=== PATIENT | male | born 1955 | race Caucasian/White ===

== ENCOUNTER → 2019-04-13 | Outpatient (CLI) | payer MEDICARE, OTHER ==
[~2019-04-13] VITALS: Ht 180.3 cm; Wt 105.2 kg
[~2019-04-13] MED LIST: CATHETER FLUSH 10 ML SYR IV PRN; REGADENOSON 0.4 MG/5 ML SYR (LEXISCAN) IV ONE
[2019-04-13 09:00] VITALS: BP 116/63
[2019-04-13 09:01] VITALS: BP 138/75
--- NOTE | 2019-04-15 13:51 | Cardiology Stress Test Report ---
Stress Test Report Type of NM Stress Test: Test Type: LEXISCAN 0.4MG/5ML Date of Procedure/Referring: Date of Procedure: Apr 13, 2019 PCP Christiana Griffin MD Admitting Physician Clarisa Combs MD Indications: Chest pain Baseline Heart Rate: 58 Baseline Blood Pressure: Blood Pressure Systolic: 138 Blood Pressure Diastolic: 75 Baseline EKG: Baseline EKG: sinus rhythm Summary & Conclusion: Summary: The patient was brought to the stress lab after informed consent was taken. St ress test was performed according to the Lexiscan protocol. 0.4 mg of IV Lexiscan was given. Low-grade exercise was performed. Baseline EKG showed sinus rhythm at 58 BPM. Initial blood pressure was 116/63 mmHg. Maximum heart rate was 80 bpm and blood pressure 132/75 mmHg. Patient did not have any chest pain, arrhythmias or ST segment changes during the stress test. 10.11 mCi of Myoview were given for rest imaging and 32.9 mCi of Myoview given for stress imaging. Transient ischemic dilatation score 0.96, EF 40 percent. Normal wall motion. Small inferior fixed defect. Small area of distal anterior apical reversible defect. Conclusion: Pharmacological stress test was negative for ischemia. Decreased LV systolic function. 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 Evidence of distal anterior apical ischemia. Coronary angiography is recommended. Christiana GRIFFIN MD Apr 15, 2019 13:51
== END ==
LOC: CARD 07:50
PROVIDERS: ATTEND Internal Medicine Interventional Cardiology
DX: I51.7 Cardiomegaly (principal); E11.9 Type 2 diabetes mellitus without complications; E78.5 Hyperlipidemia, unspecified; I10 Essential (primary) hypertension
CPT/HCPCS: 78452; 93017; 93306

== ENCOUNTER 2019-04-20 13:23 | Day surgery (SDC) | payer MEDICARE, OTHER ==
[~2019-04-20] VITALS: Ht 180.3 cm; Wt 104.3 kg
[2019-04-20] VITALS (13 sets, daily range): BP systolic 125–190; BP diastolic 75–112
[2019-04-20] MEDS ORDERED: NS IV 1000 ML 1,000 ML IV SCH ×2 (13:31→17:14)
[2019-04-20] MEDS ORDERED: LIDOCAINE 1% INJ 20 ML 20 ML VIAL ONE (13:33)
[2019-04-20] MEDS ORDERED: NS IV 1000 ML 1,000 ML ONE ×2 (13:33→15:50)
[2019-04-20 14:02] LABS: HEMOGLOBIN 14.6 G/DL (13.3-17.7); MEAN PLATELET VOLUME 11.1 FL (7.4-10.4); RED CELL DISTRIBUTION WIDTH 14.2 % (10.0-14.5); WHITE BLOOD COUNT 7.5 10^3/uL (4.3-11.0)
[2019-04-20 14:14] LABS: PROTHROMBIN TIME PATIENT 13.4 SEC (12.2-14.7)
[2019-04-20 14:21] LABS: ALANINE AMINOTRANSFERASE 32 U/L (0-55); ALBUMIN 4.7 GM/DL (3.2-4.5); ALKALINE PHOSPHATASE 52 U/L (40-136); BILIRUBIN,TOTAL 0.8 MG/DL (0.1-1.0); BUN/CREATININE RATIO 23; CALCIUM 9.6 MG/DL (8.5-10.1); CARBON DIOXIDE 26 MMOL/L (21-32); CHLORIDE 106 MMOL/L (98-107); CREATININE SERUM 1.28 MG/DL (0.60-1.30); GFR ESTIMATED 56; GLUCOSE 98 MG/DL (70-105); POTASSIUM 4.1 MMOL/L (3.6-5.0); SODIUM 141 MMOL/L (135-145); TOTAL PROTEIN 7.6 GM/DL (6.4-8.2)
[2019-04-20] MEDS ORDERED: HEParin 1000 UNIT/ML (10ML VIAL) FOR BOLUS ONE (15:12)
[2019-04-20] MEDS ORDERED: VERAPAMIL 5 MG/2 ML (CALAN) VIAL IV ONE (15:12)
[2019-04-20] MEDS ORDERED: MIDAZOLAM 5 MG/5 ML (VERSED) VIAL ONE (15:12)
[2019-04-20] MEDS ORDERED: NITRO DRIP 25000 MCG/D5W 250 ML IV ONE (15:12)
[2019-04-20] MEDS ORDERED: fentaNYL INJECTION 100 MCG/2 ML AMP ONE (15:12)
[2019-04-20] MEDS ORDERED: ATOR40TA70 PO (15:45)
[2019-04-20] MEDS ORDERED: HYDR25TA4 PO (15:45)
[2019-04-20] MEDS ORDERED: OMG1KC PO (15:45)
[2019-04-20] MEDS ORDERED: FLAX100031 PO (15:45)
--- NOTE | 2019-04-20 17:04 | Cardiac Procedure Note-CS/ASA ---
Pre-Procedure Note Pre-Op Procedure Note H&P Reviewed The H&P was reviewed, patient examined and no changes noted. Date H&P Reviewed: Apr 20, 2019 Time H&P Reviewed: 15:00 Conscious Sedation Pre-Proced Time 15:00 ASA Score 3 For ASA 3 and 4: Consider anesthesia and medical clearance. Also, for patients with a history of failed moderate sedation consider anesthesia. Airway Lungs Heart ASA score ASA 1: a normal healthy patient ASA 2: a patient with a mild systemic disease (mid diabetes, controlled hypertension, obesity ASA 3: a patient with a severe systemic disease that limits activity (angina, COPD, prior Myocardial infarction) ASA 4: a patient with an incapacitating disease that is a constant threat to life (CHF, renal failure) ASA 5: a moribund patient not expected to survive 24 hrs. (ruptured aneurysm) ASA 6: a declared brain- patient whose organs are being harvested. For emergent operations, add the letter E after the classification Mallampati Classification Grade 1 Sedation Plan Analgesia, Amnesia, Plan communicated to team members, Discussed options with patient/fam, Discussed risks with patient/fam The patient is an appropriate candidate to undergo the planned procedure, sedation, and anesthesia. The patient immediately re-assessed prior to indication. Christiana MCDANIEL MD Apr 20, 2019 17:04
--- NOTE | 2019-04-20 17:14 | Coronary Angiography Report ---
Coronary Angiography Report DATE OF PROCEDURE: 04/20/19 INDICATION: chest pressure, abnormal nuclear stress test. PREOPERATIVE DIAGNOSIS: chest pressure, abnormal nuclear stress test. POSTOPERATIVE DIAGNOSIS: severe left main, LAD and RCA disease. HISTORY: this is a 64-year-old gentleman with risk factors for CAD. He presented with chest pressure. Nuclear stress test showed distal anterior apical ischemia. Therefore, the patient was scheduled for coronary angiography. PROCEDURES PERFORMED: 1.Coronary angiography. 2.Left heart catheterization. 3. Aortic root injection. 4. Aortic arch angiogram. 5. IVUS of the left main and LAD. COMPLICATIONS: None. SPECIMENS: None. ESTIMATED BLOOD LOSS: 10 mL ANESTHESIA: Conscious sedation ANTICOAGULATION: IV heparin CONTRAST: 140 mL. FLUOROSCOPY: 10.5 minutes. FLOUROSCOPY DOSE: 1274 mgy. PROCEDURE DETAILS: The patient is a 64 male and was brought to the gold leaf laborer after informed consent was taken. All the risks and complications were explained in detail; this included the risk of bleeding, vascular damage, stroke, CO and even . The patient was draped and prepped in the usual sterile fashion. Access was gained in the right radial artery with a 6 [place] sheath. Coronary angiography and left heart catheterization was performed with the Bryant catheter. FINDINGS: 1.Left main: severe ostial disease. Stenosis severity 60-70 percent. Dampening and significant ventricularization noted with a diagnostic catheter. 2.LAD: severe mid LAD disease. Diffuse disease and small caliber vessel distally. 3.Left circumflex artery: kshz-iq-beolyyek disease in the proximal first OM. 4.RCA: severe mid stenosis. Stenosis severity 80 percent. Moderate to severe distal disease with stenosis severity of 70 percent. 5.Left heart catheterization: LV pressure 98/1 mmHg. LVEDP 6 mmHg. Aortic pressure 87/52 mmHg. Normal LV function with no wall motion abnormalities. No gradient across the aortic valve. 6. Aortic root injection: Severe ostial left main disease. No significant aortic regurgitation. 7. Aortic arch angiogram: no evidence of aortic aneurysm or dissection. Patent proximal segments of the great arteries. Recommendation: IVUS examination of the LAD and left main is recommended. IVUS details: JL4 guide catheter, IV heparin for anticoagulation and BMW guidewire. The lesion in the mid LAD was crossed with the BMW wire. The tip of the wire was placed in the distal LAD. We then went in with an IVUS catheter and numerous runs were done. MLA for mid LAD was 3.5 cm. MLA of ostial left main was 5.5 cm. The wire was taken out and post-angiogram did not show any vascular complication. Significant dampening and ventricularization was also noted with the guide catheter as well. CONCLUSIONS: severe ostial left main, mid LAD and RCA stenosis. Cardiac surgery consultation is recommended. Ilir Griffin MD, FACP, FACC, [facility] Interventional Cardiology Christiana GRIFFIN MD Apr 20, 2019 17:14
[2019-04-20] MEDS ORDERED: PATIENT MAY USE OWN MEDS, ALL PO SCH (17:15)
--- NOTE | 2019-04-20 17:35 | Discharge Inst-Post CATH ---
Discharge Inst-CATH/EP Problems Reviewed?: Yes Post Cardiac Cath/EP D/C Inst Follow Up/Plan Transfer to [facility] for Cardiac surgery/high risk PCI consultation with Dr Saunders and Dr Knowles. Follow with me afterwards. <b>CARDIAC CATH/EP PROCEDURE DISCHARGE INSTRUCTIONS</b> ACTIVITY * Go Home directly and rest. * Limit activity of the leg (or wrist if it was used) for 7 days including aerobics, swimming, jogging, bicycling, etc. * Restrict stair-climbing for 7 days if possible, if not, climb up with your non-cath leg, then bring together on the same step. * Avoid lifting, pushing, pulling or excessive movement of the affected extremity for 7 days. * Customary sexual activity may be resumed after 2 days-use caution not to use a position that strains or causes pain to the affected extremity. * No driving for 24 hours. * NO SMOKING. * Avoid straining for bowel movements for 7 days. * Gentle walking on level ground is allowed. * Returning to work will depend on the type of procedure and the results. Your doctor will discuss this with you. CALL YOUR DOCTOR FOR ANY OF THE FOLLOWING: *If bleeding from the puncture site occurs- Apply gentle pressure to site with clean cloth and call your doctor or EMS. * If a knot or lump forms under the skin, increases in size, or causes pain. * If bruising appears to be worsening or moving further down your leg instead of disappearing. * Temperature above 101 F. CARE OF YOUR GROIN INCISION; * Bruising or purple discoloration of the skin near the puncture site is common. * You may shower only, no bathtub bathing for 5 days. Be careful to avoid slipping as your leg may feel stiff. * If a closure device was used on your femoral artery, please see the attached guide regarding care of the device and your leg. * Leave dressing on FOR 24 hours. CARE OF YOUR WRIST INCISION; * Bruising or purple discoloration of the skin near the puncture site is common. * You may shower. * DO NOT submerge wrist. * Leave dressing on FOR 24 hours. Christiana MCDANIEL MD Apr 20, 2019 17:34
--- NOTE | 2019-04-20 17:38 | Cardiology Discharge Summary ---
Diagnosis/Chief Complaint Date of Admission 04/20/2019 Date of Discharge 04/20/2019 Admission Diagnosis chest pressure, abnormal nuclear stress test. Final/Discharge Diagnosis severe left main, LAD and RCA disease. Chief Complaint/HPI Chief Complaint/HPI this is a 64-year-old gentleman with risk factors for CAD. He presented with episodes of chest pressure. Nuclear stress test was done which showed evidence of distal anterior apical ischemia. Coronary angiography was recommended. Discharge Summary Procedures coronary angiography shows severe ostial left main disease, severe mid LAD stenosis. Severe mid RCA stenosis. Normal LV function. Discharge Physical Examination unremarkable. Hospital Course Was the Problem List Reviewed?: Yes stable. Pending Labs Laboratory Tests 04/20/19 13:55: White Blood Count 7.5, Red Blood Count 5.04, Hemoglobin 14.6, Hematocrit 43, Mean Corpuscular Volume 85, Mean Corpuscular Hemoglobin 29, Mean Corpuscular Hemoglobin Concent 34, Red Cell Distribution Width 14.2, Platelet Count 195, Mean Platelet Volume 11.1, Prothrombin Time 13.4, INR Comment 1.0, Activated Partial Thromboplast Time 36, Sodium Level 141, Potassium Level 4.1, Chloride Level 106, Carbon Dioxide Level 26, Anion Gap 9, Blood Urea Nitrogen 30, Creatinine 1.28, Estimat Glomerular Filtration Rate 56, BUN/Creatinine Ratio 23, Glucose Level 98, Calcium Level 9.6, Corrected Calcium , Total Bilirubin 0.8, Aspartate Amino Transf (AST/SGOT) 18, Alanine Aminotransferase (ALT/SGPT) 32, Alkaline Phosphatase 52, Total Protein 7.6, Albumin 4.7 Discussion & Recommendations Discussion discussed at length with the patient. Patient will be transferred to [facility] for cardiac surgery/high risk PCI consultation with Dr. Saunders and Dr Knowles. I spoke with Dr. Saunders at 5:30 p.m. today who very kindly accepted the patient. The patient will be transferred this evening. Follow up appt.: Dr Gaby Reina Diet: Cardiac Diet Activity as Tolerated: Yes Home Medications Reviewed patient Home Medication Reconciliation performed by pharmacy medication reconciliations wireless cellular technician and/or nursing. Patients Allergies have been reviewed. Discharge Home Medications: Reviewed and agree with Discharge Medication list on patient's Discharge Instruction sheet Condition at discharge Stable Instructions to patient/family Transfer to [facility] for Cardiac surgery/high risk PCI consultation with Dr Saunders and Dr Knowles. Follow with me afterwards. Christiana MCDANIEL MD Apr 20, 2019 17:38
--- NOTE | 2019-04-20 19:55 | NUR ---
CALLED DR. MCDANIEL AND INFORMED HIM THAT PATIENT REQUESTED THAT I CALL AND INQUIRE WHETHER OR NOT HE COULD BE DISCHARGED TO HOME AND THEN TRANSPORT HIMSELF OVER TO [facility] IN THE MORNING. DR. MCDANILE INFORMED THIS NURSE THAT THE PATIENT COULD SIGN AMA PAPERS IF HE WISHED TO DRIVE HIMSELF TO [facility]. COMMUNICATED THIS TO PATIENT AND AGAIN EXPLAINED THE RISK OF NOT BE TRANSPORTED VIA AMBULANCE TO [facility]. PATIENT THEN DECIDED TO FOLLOW DR. MCDANIEL'S MEDICAL ADVICE AND BE TRANSFERRED BY EMS.
[2019-04-21] MEDS ORDERED: ASPIRIN E.C. 81 MG (ECOTRIN) TAB PO SCH (09:00)
== END 2019-04-20 22:30 | disposition short-term general hospital (02) ==
LOC: CATH 13:23 → ICU 17:26 → CATH 22:30
PROVIDERS: ATTEND Internal Medicine Interventional Cardiology
DX: I25.10 Atherosclerotic heart disease of native coronary artery without angina pectoris (principal); E11.9 Type 2 diabetes mellitus without complications; E78.5 Hyperlipidemia, unspecified; I10 Essential (primary) hypertension; Z82.49 Family history of ischemic heart disease and other diseases of the circulatory system; Z79.899 Other long term (current) drug therapy
CPT/HCPCS: 36221; 36415; 80053; 85027; 85347; 85610; 85730; 87081; 93458; 93567

== ENCOUNTER 2019-08-31 | Outpatient (RCR) | payer MEDICARE, OTHER ==
[~2019-08-31] MED LIST changes: +ATOR40TA70 PO; -CATHETER FLUSH 10 ML SYR IV PRN; +FLAX100031 PO; +HYDR25TA4 PO; +OMG1KC PO; -REGADENOSON 0.4 MG/5 ML SYR (LEXISCAN) IV ONE
== END 2019-11-14 | disposition home or self-care (01) ==
LOC: CARD
PROVIDERS: ATTEND Internal Medicine Interventional Cardiology
DX: R00.2 Palpitations (principal)

== ENCOUNTER 2020-12-18 05:30 | Outpatient (RCR) | payer MEDICARE, OTHER ==
[~2020-12-18] VITALS: Ht 178 cm; Wt 106.7 kg
[~2020-12-18 05:30] MED LIST changes: +ASPI-1238 PO; +CLOP75TA28 PO; +LISI20TA26 PO
== END 2020-12-18 08:47 | disposition home or self-care (01) ==
LOC: PREOP 05:30
PROVIDERS: ATTEND Surgery
DX: Z01.812 Encounter for preprocedural laboratory examination (principal); K92.1 Melena; K21.9 Gastro-esophageal reflux disease without esophagitis; Z20.822 Contact with and (suspected) exposure to COVID-19
CPT/HCPCS: 87635

== ENCOUNTER 2020-12-20 11:28 | Day surgery (SDC) | payer MEDICARE, OTHER ==
[~2020-12-20] VITALS: Ht 178 cm; Wt 10607.0 kg
[~2020-12-20 11:28] MED LIST changes: +LACTATED RINGERS 1,000 ML IV ONE
[2020-12-20] MEDS ORDERED: LACTATED RINGERS 1,000 ML IV STA (11:37)
[2020-12-20] MEDS ORDERED: MIDAZOLAM 2 MG/2 ML (VERSED) VIAL ONE ×2 (11:39→12:21)
[2020-12-20] MEDS ORDERED: PROPOFOL INJECTION 50 ML IV ONE ×2 (11:39→12:30)
[2020-12-20 11:40] VITALS: BP 164/96
[2020-12-20] MEDS ORDERED: HURRICAINE EXT TUBE (BENZOCAINE) XX PRN (11:45)
[2020-12-20] MEDS ORDERED: LIDOCAINE JELLY 2% 6 ML SYRINGE MM PRN (11:45)
[2020-12-20] MEDS ORDERED: LIDOCAINE JELLY 2% 6 ML SYRINGE ONE (11:46)
[2020-12-20] MEDS ORDERED: HURRICAINE EXT TUBE (BENZOCAINE) ONE (11:47)
[2020-12-20 12:55] VITALS: BP 120/63
--- NOTE | 2020-12-20 12:56 | Anesthesia-General Post-Op ---
MAC Patient Condition Mental Status/LOC: Same as Preop Cardiovascular: Satisfactory Nausea/Vomiting: Absent Respiratory: Satisfactory Pain: Controlled Complications: Absent Post Op Complications Complications None Follow Up Care/Instructions Patient Instructions None needed. Anesthesiology Discharge Order Discharge Order Patient is doing well, no complaints, stable vital signs, no apparent adverse anesthesia problems. No complications reported per nursing. JINA MCCLAIN CRNA Dec 20, 2020 12:56
[2020-12-20 13:00] VITALS: BP 128/70
[2020-12-20 13:05] VITALS: BP 111/56
[2020-12-20] MEDS ORDERED: FAMO20TA3 PO ×2 (13:18→13:20)
[2020-12-20 13:30] VITALS: BP 187/100
[2020-12-20 13:40] VITALS: BP 187/100
--- NOTE | 2020-12-20 19:33 | OPERATIVE REPORT ---
DATE OF SERVICE: 12/20/2020 ATTENDING PRIMARY CARE PHYSICIAN: Dr. Clarisa Combs. PREOPERATIVE DIAGNOSES: Dark tarry stools, gastroesophageal reflux disease. POSTOPERATIVE DIAGNOSES: Reflux esophagitis stage II, small hiatal hernia approximately 2 cm in size, moderate gastritis with superficial erosions. No formal ulcerations or any active bleeding. Mild chronic stage II external and internal hemorrhoids. PROCEDURE: EGD with biopsy, colonoscopy. SURGEON: Jean Pierre Yuan MD. ANESTHESIA: Monitored anesthesia care. ESTIMATED BLOOD LOSS: Minimal. FINDINGS: Reflux esophagitis stage II, small hiatal hernia approximately 2 cm in size, moderate gastritis with superficial erosions. No formal ulcerations or any active bleeding. Mild chronic stage II external and internal hemorrhoids. DISPOSITION: The patient tolerated the procedure well. INDICATIONS: The patient is a 65-year-old male referred over to us for dark tarry stools. He reports that this occurred approximately one month ago and lasted for 3 to 4 days. He underwent a Hemoccult test, which was positive. He also did report feeling slightly lightheaded at that time. He did not report any nausea, no vomiting as well as no hematemesis, no coffee ground emesis. He is on anticoagulation for coronary artery disease with Plavix. He also did have a colonoscopy in 2016, which he believes to be normal. He does not report any family history of colon cancer. DESCRIPTION OF PROCEDURE: The patient was brought to the endoscopy suite, laid in the left lateral decubitus position. After adequate IV pain and sedative medications and monitored anesthesia care, the mouthpiece was applied. The endoscope was placed in the mouth, visualizing the pharynx and hypopharyngeal region. Vocal cords, epiglottis and vallecula identified and appeared to be normal. Endoscope was then gently intubated. Esophageal opening and esophagus insufflated. The endoscope was then advanced to the first, second and third portion of esophagus at the level of the GE junction, a reflux esophagitis stage II identified. There were no ulcers or strictures identified in this region. A biopsy was taken with forceps with visualization of good hemostasis. The endoscope was then advanced in the stomach and endoscope retroflexed, visualizing a small hiatal hernia approximately 2 cm in size. There was a moderate severity gastritis with small areas of focal antral erosions; however, there was no active bleeding identified. This was the most likely source of the dark tarry stools. Biopsy was taken of the stomach antrum to rule out H. pylori with visualization of good hemostasis. The endoscope was then advanced to the pylorus and first and second portion of the duodenum, which appeared normal with no ulcerations or bleeding identified. The endoscope was then slowly withdrawn while taking a second look and suctioning of residual air with no additional findings. We then proceeded with the colonoscopy portion of the procedure and a digital rectal examination was performed, which revealed chronic stage II external and internal hemorrhoids, not actively edematous nor inflamed and no bleeding. Normal sphincter tone was felt and there were no palpable masses. Prostate gland was palpable and appeared normal. The endoscope was then intubated to the anus and rectum gently insufflated. The endoscope was then advanced to the valves of Robin of the rectum with no polyps or any neoplasms identified. The endoscope was then advanced through the sigmoid colon where no significant diverticulosis was identified. The endoscope was then advanced and remainder of the descending, transverse and ascending colon to the cecum. These segments were normal. There were no polyps, neoplasms or any active bleeding sources identified. The endoscope was then slowly withdrawn while taking a second look and suctioning of residual air with no additional findings. The patient tolerated the procedure well. We will recommend the necessary lifestyle and diet accommodation, which encompasses small and more frequent meals, avoiding to eating at night as well as head elevation while lying supine. He also needs to avoid caffeinated beverages, spicy, greasy and acidic foods as well as alcoholic beverages. We will also start him on Pepcid 20 mg b.i.d. We will also recommend a high fiber diet with at least 30 grams of fiber daily to promote soft stools on a daily basis as a preventative measure. Job ID: [id number] DocumentID: [id number] Dictated Date: 12/20/2020 12:56:53 Banana Loader Date: 12/20/2020 19:32:59 Dictated By: JEAN PIERRE YUAN MD
== END 2020-12-20 13:40 | disposition home or self-care (01) ==
LOC: ENDO 11:28
PROVIDERS: ATTEND Surgery
DX: K21.00 Gastro-esophageal reflux disease with esophagitis, without bleeding (principal); K29.50 Unspecified chronic gastritis without bleeding; K44.9 Diaphragmatic hernia without obstruction or gangrene; K64.1 Second degree hemorrhoids; K92.1 Melena; I10 Essential (primary) hypertension; K21.9 Gastro-esophageal reflux disease without esophagitis; E11.9 Type 2 diabetes mellitus without complications; E66.9 Obesity, unspecified; E78.00 Pure hypercholesterolemia, unspecified; I25.10 Atherosclerotic heart disease of native coronary artery without angina pectoris; Z79.899 Other long term (current) drug therapy; Z79.82 Long term (current) use of aspirin; Z83.3 Family history of diabetes mellitus
CPT/HCPCS: 88305

== ENCOUNTER → 2021-02-12 | Outpatient (CLI) | payer MEDICARE, OTHER ==
[~2021-02-12] VITALS: Ht 180 cm; Wt 104.0 kg
[~2021-02-12] MED LIST changes: +CATHETER FLUSH 10 ML SYR IV PRN; +FAMO20TA3 PO; -LACTATED RINGERS 1,000 ML IV ONE; +REGADENOSON 0.4 MG/5 ML SYR (LEXISCAN) IV ONE
[2021-02-12 13:30] VITALS: BP 142/101
--- NOTE | 2021-02-12 15:25 | Cardiology Stress Test Report ---
Stress Test Report Date of Procedure/Referring: Date of Procedure: Feb 12, 2021 PCP Evan Hoskins MD Admitting Physician Clarisa Combs MD Indications: HTN Baseline Heart Rate: 58 Baseline Blood Pressure: Blood Pressure Systolic: 142 Blood Pressure Diastolic: 101 Baseline Vitals Vital Signs Date Time Temp Pulse Resp B/P (MAP) Pulse Ox O2 Delivery O2 Flow Rate FiO2 02/12/21 13:30 58 18 142/101 (115) 97 Baseline EKG: Baseline EKG: NSR, frequent pvcs Summary After explaining the procedure to the patient, he signed a consent and then brought to the stress nuclear laboratory. Patient received 0.4 mg Lexiscan for stress test, ECG, heart rate and blood pressure were monitored continuously. Resting and stress dose of radio tracer were injected, imaging was acquired and reviewed in short axis, horizontal long axis and vertical long axis views. TID: 0.96 SSS: 6 SDS: 4 EF: 49 1. Patient tolerated Lexiscan well 2. Baseline EKG showing sinus rhythm with frequent premature ventricular contractions 3. Diaphragmatic attenuation with reversible ischemia involving the mid to apical anterior wall, mild ischemia at the apex and inferoapical segment 3. Normal left ventricular size, EF 49% EVAN HOSKINS MD Feb 12, 2021 15:25
== END ==
LOC: CARD 11:30
PROVIDERS: ATTEND Internal Medicine Cardiovascular Disease
DX: I11.9 Hypertensive heart disease without heart failure (principal); I25.10 Atherosclerotic heart disease of native coronary artery without angina pectoris
CPT/HCPCS: 78452; 93017; 93306; A9502

== ENCOUNTER 2021-02-28 09:00 | Day surgery (SDC) | payer MEDICARE, OTHER ==
[2021-02-28] VITALS (10 sets, daily range): BP systolic 121–151; BP diastolic 63–85
[~2021-02-28] VITALS: Ht 180 cm; Wt 104.0 kg
[2021-02-28 07:29] LABS: BILIRUBIN,URINE NEGATIVE (NEGATIVE); CLARITY,URINE CLEAR; COLOR,URINE YELLOW; GLUCOSE, URINE (UA) NEGATIVE (NEGATIVE); KETONES,URINE NEGATIVE (NEGATIVE); LEUKOCYTE ESTERASE ,URINE NEGATIVE (NEGATIVE); NITRITE,URINE NEGATIVE (NEGATIVE); PROTEIN,URINE NEGATIVE (NEGATIVE)
[2021-02-28 07:30] LABS: HEMATOCRIT 42 % (40-54); HEMOGLOBIN 13.3 g/dL (13.3-17.7); MEAN CORPUSCULAR HEMOGLOBIN 25 pg (25-34); MEAN CORPUSCULAR HGB CONC 32 g/dL (32-36); MEAN CORPUSCULAR VOLUME 79 fL (80-99); MEAN PLATELET VOLUME 10.3 fL (9.0-12.2); PLATELET COUNT 243 10^3/uL (130-400); WHITE BLOOD COUNT 8.1 10^3/uL (4.3-11.0)
[2021-02-28 07:45] LABS: BACTERIA,URINE NEGATIVE /HPF
--- NOTE | 2021-02-28 07:52 | Diagnostic Imaging Report ---
INDICATION: Chest pain COMPARISON: None available TECHNIQUE: Single radiograph of chest dated 02/28/2021. FINDINGS: The cardiac silhouette is mildly enlarged. Mild central pulmonary vascular congestion. Low lung volumes with mild bibasilar interstitial opacities. No large-volume pleural effusion. No pneumothorax. No acute osseous abnormality. IMPRESSION: Mild cardiomegaly and pulmonary vascular congestion. Mild bibasilar atelectasis and/or pneumonitis. No significant pleural effusion. Dictated by: Dictated on workstation # [id number]
--- NOTE | 2021-02-28 07:56 | Conscious Sedation/ASA ---
Conscious Sedation Pre-Proced Time 07:56 ASA Score 3 For ASA 3 and 4: Consider anesthesia and medical clearance. Also, for patients with a history of failed moderate sedation consider anesthesia. Airway Lungs Heart ASA score ASA 1: a normal healthy patient ASA 2: a patient with a mild systemic disease (mid diabetes, controlled hypertension, obesity x ASA 3: a patient with a severe systemic disease that limits activity (angina, COPD, prior Myocardial infarction) ASA 4: a patient with an incapacitating disease that is a constant threat to life (CHF, renal failure) ASA 5: a moribund patient not expected to survive 24 hrs. (ruptured aneurysm) ASA 6: a declared brain- patient whose organs are being harvested. For emergent operations, add the letter E after the classification Mallampati Classification Grade 3 Sedation Plan Analgesia, Amnesia, Plan communicated to team members, Discussed options with patient/fam, Discussed risks with patient/fam The patient is an appropriate candidate to undergo the planned procedure, sedation, and anesthesia. The patient immediately re-assessed prior to indication. EVAN HAWKINS MD Feb 28, 2021 07:56
[2021-02-28 07:59] LABS: INR 0.9 (0.8-1.4); PROTHROMBIN TIME PATIENT 12.9 SEC (12.2-14.7)
[2021-02-28 08:03] LABS: ALANINE AMINOTRANSFERASE 18 U/L (0-55); ALBUMIN 4.2 GM/DL (3.2-4.5); ALKALINE PHOSPHATASE 65 U/L (40-136); BILIRUBIN,TOTAL 0.4 MG/DL (0.1-1.0); BUN/CREATININE RATIO 19; CALCIUM 9.3 MG/DL (8.5-10.1); CARBON DIOXIDE 22 MMOL/L (21-32); CHLORIDE 108 MMOL/L (98-107); CHOLESTEROL 137 MG/DL (< 200); CREATININE SERUM 1.04 MG/DL (0.60-1.30); GFR ESTIMATED > 60; GLUCOSE 129 MG/DL (70-105); HDL CHOLESTEROL 35 MG/DL (40-60); SODIUM 139 MMOL/L (135-145); TOTAL PROTEIN 7.1 GM/DL (6.4-8.2); TRIGLYCERIDES 116 MG/DL (<150); VLDL CHOLESTEROL 23 MG/DL (5-40)
--- NOTE | 2021-02-28 08:48 | Discharge Inst-Post CATH ---
Discharge Inst-CATH/EP Problems Reviewed?: Yes Post Cardiac Cath/EP D/C Inst Follow Up/Plan Appointment with Dr Hoskins in 2-4 weeks <b>CARDIAC CATH/EP PROCEDURE DISCHARGE INSTRUCTIONS</b> ACTIVITY * Go Home directly and rest. * Limit activity of the leg (or wrist if it was used) for 7 days including aerobics, swimming, jogging, bicycling, etc. * Restrict stair-climbing for 7 days if possible, if not, climb up with your non-cath leg, then bring together on the same step. * Avoid lifting, pushing, pulling or excessive movement of the affected extremity for 7 days. * Customary sexual activity may be resumed after 2 days-use caution not to use a position that strains or causes pain to the affected extremity. * No driving for 24 hours. * NO SMOKING. * Avoid straining for bowel movements for 7 days. * Gentle walking on level ground is allowed. * Returning to work will depend on the type of procedure and the results. Your doctor will discuss this with you. CALL YOUR DOCTOR FOR ANY OF THE FOLLOWING: *If bleeding from the puncture site occurs- Apply gentle pressure to site with clean cloth and call your doctor or EMS. * If a knot or lump forms under the skin, increases in size, or causes pain. * If bruising appears to be worsening or moving further down your leg instead of disappearing. * Temperature above 101 F. CARE OF YOUR GROIN INCISION; * Bruising or purple discoloration of the skin near the puncture site is common. * You may shower only, no bathtub bathing for 5 days. Be careful to avoid slipping as your leg may feel stiff. * If a closure device was used on your femoral artery, please see the attached guide regarding care of the device and your leg. * Leave dressing on FOR 24 hours. CARE OF YOUR WRIST INCISION; * Bruising or purple discoloration of the skin near the puncture site is common. * You may shower. * DO NOT submerge wrist. * Leave dressing on FOR 24 hours. EVAN HOSKINS MD Feb 28, 2021 8:48 am
--- NOTE | 2021-02-28 08:54 | Cardiac Cath Report ---
Cardiac Cath Report Physician (s)/Foot Specialist (s) Physician EVAN HAWKINS MD Pre-Procedure Diagnosis Pre-Procedure Diagnosis: Coronary artery disease Post-Procedure Note Procedure Start Date: Feb 28, 2021 Name of Procedure: Left heart catheterization Findings/Procedure Note PROCEDURE NOTE: 66-year-old gentleman with history of coronary artery disease multiple stent, had an abnormal stress test, scheduled for cardiac catheterization possible PTCA. After explaining the procedure to the patient, all pros and cons were explained, all questions were answered. The patient signed the consent and then he was placed on the cardiac catheterization laboratory. Groin was prepped SL fashion local anesthesia was used. Sheath placed in the right femoral artery. Calista right and left catheter were used to access the coronary system. Calista right was prolapsed to the left ventricular cavity, pressure was measured, pullback LV to aorta was done. No left ventriculogram was done At the end of the procedure the sheath was removed. Closure device was deployed FINDINGS: Hemodynamics LV 115/17, end-diastolic pressure of 17 Aorta 122/57 mean of 83 ANATOMY: Left Main has a patent stent Left Anterior Descending has a patent stent proximally, mild in-stent restenosis , distally the artery tapered down into a very small artery, small vessel disease Left Circumflex has mild disease nonobstructive disease Right Coronary Artery is dominant artery with multiple stents, patent stents with mild disease nonobstructive disease LV Gram was not done, pressure was measured CONCLUSION: 1. Patent stents in the left main, proximal LAD and proximal and mid right coronary artery, small vessel disease in the distal LAD that is tapering down into very small artery distally. 2. Mild in-stent restenosis in the right coronary artery nonobstructive disease 3. Mild disease in the circumflex artery nonobstructive disease DISCUSSION AND RECOMMENDATION: Continue to maximize medical therapy Anesthesia Type: Conscious Sedation Estimated blood loss (mL): 15 ml Contrast Amount: 45 ml Total Radiation Dose: 470 mGy Post-Procedure Diagnosis Post-operative diagnosis: Chest pain Coronary artery disease Hypertension Hyperlipidemia EVAN HAWKINS MD Feb 28, 2021 8:54 am
[~2021-02-28 09:00] MED LIST changes: -CATHETER FLUSH 10 ML SYR IV PRN; +MTP25TSR PO; +NS IV 1000 ML 1,000 ML IV SCH; +PATIENT MAY USE OWN MEDS, ALL PO SCH; -REGADENOSON 0.4 MG/5 ML SYR (LEXISCAN) IV ONE
== END 2021-02-28 13:10 | disposition home or self-care (01) ==
LOC: CATH 09:00 → SDC 09:15 → CATH 13:10
PROVIDERS: ATTEND Internal Medicine Cardiovascular Disease
DX: I25.10 Atherosclerotic heart disease of native coronary artery without angina pectoris (principal); I10 Essential (primary) hypertension; I25.89 Other forms of chronic ischemic heart disease; E11.9 Type 2 diabetes mellitus without complications; E78.2 Mixed hyperlipidemia; Z79.82 Long term (current) use of aspirin; Z79.02 Long term (current) use of antithrombotics/antiplatelets; Z79.899 Other long term (current) drug therapy; Z98.890 Other specified postprocedural states
CPT/HCPCS: 71045; 80053; 80061; 81000; 85027; 85610; 85730; 87081; 93458; C1760; C1894; 36415

== ENCOUNTER → 2021-05-09 | Outpatient (CLI) | payer MEDICARE, OTHER ==
[~2021-05-09] MED LIST changes: -NS IV 1000 ML 1,000 ML IV SCH; -PATIENT MAY USE OWN MEDS, ALL PO SCH
== END ==
LOC: LABNPT 06:44
PROVIDERS: ATTEND Orthopaedic Surgery
DX: Z01.812 Encounter for preprocedural laboratory examination (principal); Z20.822 Contact with and (suspected) exposure to COVID-19
CPT/HCPCS: 87635